=== PATIENT | male | born 2005 | race Caucasian/White ===

== ENCOUNTER 2024-07-03 19:42 | Emergency (ER) | payer SELFPAY ==
[2024-07-03 19:43] VITALS: RESP 16; O2SAT 99; BMI 28.8
--- NOTE | 2024-07-03 20:29 | ED_ITS ---
<Statement entered by Aliyah Little MD - 07/03/24 23:13> I was consulted by the MARGARITA, and we discussed the complexity of the problems being addressed. I approved the treatment and management plan for this patient's care in the emergency department, thus performing a substantive portion of the medical decision making. Aliyah Little MD, GUERDA, FACEP Discharge Plan Disposition Patient Disposition: Home, Self-Care Condition: Good Referrals Follow up/Referrals: Provider,Referral, [Primary Care Provider] - See instructions Activity Restrictions/Add. Instructions Additional Instructions/Restrictions: Please continue to take Tylenol alternating Motrin for any symptoms. I have sent in some Bromfed to your pharmacy for help with your constitutional symptoms if you need it. Clinical Impressions Clinical Impression: Acute upper respiratory infection Stand Alone Forms Stand Alone Forms: Work/School Release Instructions Patient Instructions: Common Cold Print Language Print Language: Arabic Discharge ED Provider: Aliyah Little General Adult HPI General Chief complaint: Upper Respiratory Infection Stated complaint: nilson, SOA sore throat Time Seen by Provider: 07/03/24 20:29 History of Present Illness HPI narrative: Patient presents for evaluation of cough congestion and sore throat. Patient states he has had 3 days of cough congestion and sore throat he has been trying to take Tylenol Motrin and DayQuil. Patient presents today because he needs a work excuse. He denies any chest pain nausea vomiting or diarrhea. Related Data Allergies Allergy/AdvReac Type Severity Reaction Status Date / Time No Known Allergies Allergy Verified 07/03/24 20:35 [facility] Disclaimer: The information contained in this section may have been updated after the patient was seen, as this information can be updated by other users. Social History Smoking Status: Never smoker alcohol intake: never current occupational status: employed Travel in the last 8 weeks: None ROS Obtained: Yes Systems reviewed as appropriate & no additional complaints except as documented Physical Exam General General appearance: alert and in no apparent distress Respiratory Respiratory exam: Present normal lung sounds bilaterally Cardiovascular Cardiovascular exam: Present regular rate Neurological Exam Neurological exam: Present alert and oriented X3 Medical Decision Making Medical Records Screening: Per USPSTF and CDC recommendations, given the prevalence of disease in our region, it is our hospital?s policy to screen for HIV and viral Hepatitis for all patients aged 18 and over and those with ongoing risk factors. Richy Inquiry Pt receiving controlled substance: No Vital Signs: 07/03/24 19:43 07/03/24 20:34 Temperature 97.9 F Temperature Source Oral Pulse Rate 82 Respiratory Rate 16 16 Blood Pressure 162/90 H Blood Pressure Source Manual Cuff/ Doppler Blood Pressure Position Supine 02 Sat by Pulse Oximetry 99 99 Oxygen Delivery Method Room Air Medical Decision Narrative: In summary patient is a 18-year-old male who presents to the emergency department for evaluation of URI symptoms. Patient is hemodynamically stable upon arrival, afebrile. Physical exam is remarkable for erythematous posterior pharynx without any evidence of exudate. He has no cervical lymphadenopathy. Breath sounds are clear and equal bilaterally to the bases. Patient does have nasal congestion. Differential diagnosis includes viral bacterial upper respiratory tract infection.. Initial workup was considered however patient via patient directed decision making has declined BRAND. Initial interventions were offered including Tylenol and Motrin but via patient directed decision making has declined. I had interactive discussion with the patient regarding his symptoms and treatment options. Via patient directed decision making patient feels comfortable going home without any intervention or further diagnostic studies he only came because he is required for having a note for work. Thus patient is appropriate for discharge with recommendations to return if his symptoms worsen or do not improve. Patient verbalized understanding and agreement. Critical Care Critical Care Time Critical Care Time: No
[2024-07-03 20:34] VITALS: BP 162/90; PULSE 82; RESP 16; TEMP 36.6; O2SAT 99
[2024-07-03 20:40] VITALS: BP 136/81; PULSE 89; RESP 16; TEMP 37
== END 2024-07-03 20:54 | disposition home or self-care (01) ==
PROVIDERS: Emergency Provider Student in an Organized Health Care Education/Training Program
DX: J06.9 Acute upper respiratory infection, unspecified (principal); R05.9 Cough, unspecified; R09.81 Nasal congestion; J02.9 Acute pharyngitis, unspecified
CPT/HCPCS: 99282

== ENCOUNTER 2024-10-28 17:27 | Emergency (ER) | payer MEDICAID, SELFPAY ==
[2024-10-28 17:53] VITALS: BP 143/74; PULSE 81; RESP 15; TEMP 36.8; O2SAT 100; BMI 26.2
[2024-10-28 18:06] LABS: Coronavirus 19, PCR Not Detected (NotDetected); Influenza A, PCR Not Detected (NotDetected); Influenza B, PCR Not Detected (NotDetected)
--- NOTE | 2024-10-28 19:28 | HMH.EDGENADL ---
Discharge Plan Disposition Patient Disposition: Home, Self-Care Condition: Good Prescriptions Prescriptions: New amoxicillin 500 mg capsule 500 mg PO BID 7 Days Qty: 14 0RF ondansetron 4 mg tablet,disintegrating 4 mg PO Q8H PRN (Reason: nausea and vomiting) 5 Days Qty: 10 0RF No Action zcqyxdvgzxknzog-znuqwmknl-ZK [Bromfed DM] 2-30-10 mg/5 mL syrup 5 ml PO Q4H PRN (Reason: sinus symptoms) Qty: 118 0RF Referrals Follow up/Referrals: Provider,Referral, MD [Primary Care Provider] - See instructions Activity Restrictions/Add. Instructions Additional Instructions/Restrictions: I have prescribed antibiotics and nausea medication for you to take as needed. It appeared on your ultrasound that you may have some signs of a pneumonia, based off your ultrasound and history and physical exam. Please return with any new or worsening symptoms. Clinical Impressions Clinical Impression: Acute upper respiratory infection Stand Alone Forms Stand Alone Forms: Work/School Release Print Language Print Language: Monegasque Discharge ED Provider: Matthew Berman Adult HPI General Chief complaint: Upper Respiratory Infection Stated complaint: abdominal pain,sore throat,SOA Time Seen by Provider: 10/28/24 19:28 Mode of Arrival: Ambulatory Source of Information: Patient Description of Symptoms (Recalled from ER Triage Doc. by RN): patient states on sunday he devloped a sore throat, cough, upper abdomnial pain and shortness of breath. he reports his gf had the flu last week. History of Present Illness HPI narrative: Patient presents for evaluation of sore throat, cough, shortness of breath, gradual in onset with recent sick contacts, no pleuritic pain, no hemoptysis, no leg pain or leg swelling. No overt chest pain. No known fevers however has had chills. No previous therapies. Please note that above description of symptoms, in this electronic medical record under categorization of recalled from ER triage doctor by RN are reflective of an initial nursing assessment, however, is not reflective of my full history and physical exam that was personally taken and clarified. Consequentially, this preceding description of symptoms, which may include the patient's categorized chief complaint in the EMR, do not reflect my personal clinical impression, and the ultimate description of history of present illness and patient stated complaints should be deferred to this section of the note. Unless stated otherwise or congruent with this section of the note, additional signs, symptoms, or incongruence should be interpreted as inaccurate with my clinical impression. Related Data Previous Rx's ?Medication ?Instructions ?Recorded ptzkgbvfgszpquj-hgmfgrxhjdubzpr-TJ 5 ml PO Q4H PRN sinus symptoms 07/03/24 2 mg-30 mg-10 mg/5 mL oral syrup #118 mL (Bromfed DM) amoxicillin 500 mg capsule 500 mg PO BID 7 days #14 caps 10/28/24 ondansetron 4 mg disintegrating 4 mg PO Q8H PRN nausea and 10/28/24 tablet vomiting 5 days #10 tabs Allergies Allergy/AdvReac Type Severity Reaction Status Date / Time No Known Allergies Allergy Verified 07/03/24 20:35 [facility] Disclaimer: The information contained in this section may have been updated after the patient was seen, as this information can be updated by other users. Social History (Updated 07/03/24 @ 20:42 by CHARU See) Smoking Status: Current every day smoker alcohol intake: never current occupational status: employed Travel in the last 8 weeks: None Have you lived/traveled outside [place] in past 30 days?: No Contact w/someone who lives/traveled outside [place] past 30 days?: No Exposure to someone with infectious disease in past 14 days?: No Do you have a fever (greater than 100.4 F or 38 C)?: No Have you tested positive for COVID-19: No Exposed to someone with COVID-19 in past 14 days?: No Do you have a sore throat?: No Do you have a cough?: No Do you have any weakness?: No Do you have any diarrhea?: No Are you experiencing any unusual bleeding?: No Do you have any muscle aches/pain?: No Do you have any abdominal pain?: No Are you experiencing loss of taste or smell?: No ROS Obtained: Yes other As per HPI Physical Exam General General appearance: alert and in no apparent distress Head Head exam: atraumatic and normocephalic Eye Eye exam: Present normal appearance Neck Neck exam: Present normal inspection Chest Chest inspection: Present normal inspection and symmetric chest wall rise Respiratory Respiratory exam: Present normal lung sounds bilaterally; Absent respiratory distress Cardiovascular Cardiovascular exam: Present regular rate and normal rhythm Abdominal Exam Abdominal exam: Present soft Neurological Exam Neurological exam: Present alert and oriented X3 Psychiatric Psychiatric exam: Present normal affect and normal mood Skin Skin exam: Present warm and dry Medical Decision Making Medical Records Medical records reviewed: Yes I reviewed the patient's medical records. Screening: Per USPSTF and CDC recommendations, given the prevalence of disease in our region, it is our hospital?s policy to screen for HIV and viral Hepatitis for all patients aged 18 and over and those with ongoing risk factors. Richy Inquiry Pt receiving controlled substance: No Vital Signs: 10/28/24 17:53 10/28/24 20:00 Temperature 98.2 F 98.1 F Temperature Source Oral Pulse Rate 87 Pulse Rate [Right] 81 Respiratory Rate 15 20 Blood Pressure 132/87 Blood Pressure [Right Arm] 143/74 H Blood Pressure Mean [Right Arm] 97 Blood Pressure Source [Right Arm] Automatic Cuff Blood Pressure Position [Right Arm] Sitting 02 Sat by Pulse Oximetry 100 Oxygen Delivery Method Room Air Room Air Lab Data Lab Results 10/28/24 17:52: SARS-CoV-2 (PCR) Not detected, Influenza A Untype (PCR) Not detected, Influenza Type B (PCR) Not detected Orders (Tests/Meds): ORDERS Category Date Time Status Rapid PCR Covid and Flu A/B Stat Lab 10/28/24 17:52 Completed Medical Decision Narrative: Patient with history and exam per above presenting for evaluation of multiple complaints Diagnoses considered include upper respiratory infection, community-acquired pneumonia, among others ED workup and treatment included: COVID and flu testing Labs were independently interpreted by me, significant for no acute findings My clinical impression at this time is most consistent with community-acquired pneumonia I discussed my clinical impression with patient and answered all questions. At this time, the evidence for any other entities in the differential is insufficient to warrant any further testing or ED observation. This was explained to the patient. The patient was advised that persistent or worsening symptoms require further evaluation. Critical Care Critical Care Time Critical Care Time: No
[2024-10-28 20:00] VITALS: BP 132/87; PULSE 87; RESP 20; TEMP 36.7; O2SAT 97
== END 2024-10-28 20:12 | disposition home or self-care (01) ==
PROVIDERS: Emergency Provider Emergency Medicine
DX: J06.9 Acute upper respiratory infection, unspecified (principal)
CPT/HCPCS: 87636; 99283

== ENCOUNTER 2025-04-09 22:57 | Emergency (ER) | payer SELFPAY ==
[2025-04-09 22:58] VITALS: BP 129/91; PULSE 83; RESP 16; TEMP 36.8; O2SAT 99; BMI 28.1
[2025-04-09] MEDS: ONDANSETRON 4MG ODT 8 MG SL (23:08)
--- NOTE | 2025-04-09 23:09 | ED_ITS ---
Discharge Plan Disposition Patient Disposition: Home, Self-Care Condition: Good Prescriptions Prescriptions: New ondansetron 4 mg tablet,disintegrating 4 mg PO Q6H PRN (Reason: nausea and vomiting) Qty: 12 0RF dicyclomine 10 mg capsule 10 mg PO DAILY PRN (Reason: Abdominal cramping) Qty: 3 0RF No Action rmzjfrjuslkwomt-dhhzrgcje-XA [Bromfed DM] 2-30-10 mg/5 mL syrup 5 ml PO Q4H PRN (Reason: sinus symptoms) Qty: 118 0RF amoxicillin 500 mg capsule 500 mg PO BID 7 Days Qty: 14 0RF ondansetron 4 mg tablet,disintegrating 4 mg PO Q8H PRN (Reason: nausea and vomiting) 5 Days Qty: 10 0RF Activity Restrictions/Add. Instructions Additional Instructions/Restrictions: You were evaluated in the ER and are believed to be appropriate for discharge at this time. Take the prescribed Zofran (ondansetron) as needed for nausea and vomiting. Drink plenty of water, Gatorade, Pedialyte to stay hydrated. Only take the prescribed Bentyl (dicyclomine) if needed for severe abdominal cramping. Do not take any antidiarrheal medications. Start eating a bland diet such as plain toast, rice, bananas, and if you are tolerating these slowly progress your diet back to normal. Follow-up with your primary care doctor for reevaluation in a few days. Return to the ER with any new, worsening, or otherwise concerning symptoms as discussed. Clinical Impressions Clinical Impression: Nausea, vomiting, and diarrhea Stand Alone Forms Stand Alone Forms: Work/School Release Print Language Print Language: Tamazight Discharge ED Provider: Alhaji Brumfield General Adult HPI General Stated complaint: V/D Time Seen by Provider: 04/09/25 22:59 History of Present Illness HPI narrative: Otherwise healthy 19-year-old male presents to the ER with complaints of nausea, vomiting, diarrhea. Symptoms started approximately 15 hours prior to arrival. Patient had nonbloody, nonbilious emesis, nonbloody, nonmelanotic stool. He reports he has only been able to keep down minimal amounts today and prior to arrival tried to eat chicken noodle soup which he promptly vomited back up. He has no abdominal pain, no fevers, no bodyaches, no chills, no chest pain, no difficulty breathing, no dysuria, no hematuria. Patient reports taking naproxen prior to arrival. Patient reports he is only in the ER because his work sent him to get a doctor note. He has no other complaints or concerns at this time. Related Data Previous Rx's ?Medication ?Instructions ?Recorded wafzuitqpbusqli-lldegasawngbtzr-N[place] 5 ml PO Q4H PRN sin us symptoms 07/03/24 2 mg-30 mg-10 mg/5 mL oral syrup #118 mL (Bromfed DM) amoxicillin 500 mg capsule 500 mg PO BID 7 days #14 ca ps 10/28/24 ondansetron 4 mg disintegrating 4 mg PO Q8H PRN nausea and 10/28/24 tablet vomiting 5 days #10 tabs dicyclomine 10 mg capsule 10 mg PO DAILY PRN Abdominal 04/09/25 cramping #3 caps ondansetron 4 mg disintegrating 4 mg PO Q6H PRN nausea and 04/09/25 tablet vomiting #12 tabs Allergies Allergy/AdvReac Type Severity Reaction Status Date / Time No Known Allergies Allergy Verified 07/03/24 20:35 [facility] Disclaimer: The information contained in this section may have been updated after the patient was seen, as this information can be updated by other users. Social History (Updated 07/03/24 @ 20:42 by CHARU See) Smoking Status: Current every day smoker alcohol intake: never current occupational status: employed Travel in the last 8 weeks?: None ROS Obtained: Yes Systems reviewed as appropriate & no additional complaints except as documented Per HPI Physical Exam General General appearance: alert and in no apparent distress Head Head exam: atraumatic and normocephalic Eye Eye exam: Present PERRL and EOMI ENT ENT exam: Present mucous membranes moist Neck Neck exam: Present normal inspection and full ROM Chest Chest inspection: Present symmetric chest wall rise Respiratory Respiratory exam: Present normal lung sounds bilaterally; Absent respiratory distress, wheezes or stridor Cardiovascular Cardiovascular exam: Present regular rate and normal rhythm Abdominal Exam Abdominal exam: Present soft; Absent distention, tenderness, guarding or rebound Comment: Benign abdomen Extremities Exam Extremities exam: Present full ROM; Absent edema Neurological Exam Neurological exam: Present alert and oriented X3; Absent motor sensory deficit Psychiatric Psychiatric exam: Present normal affect and normal mood Skin Skin exam: Present warm and dry Medical Decision Making Medical Records Medical records reviewed: Yes I reviewed the patient's medical records. Screening: Per USPSTF and CDC recommendations, given the prevalence of disease in our region, it is our hospital?s policy to screen for HIV and viral Hepatitis for all patients aged 18 and over and those with ongoing risk factors. Richy Inquiry Pt receiving controlled substance: No Orders (Tests/Meds): ED MEDICATIONS Discontinued Medications Generic Name Dose Route Start Last Admin Trade Name Lorena PRN Reason Stop Dose Admin Ondansetron HCl 8 mg 04/09/25 23:03 04/09/25 23:08 Ondansetron 4mg Odt SL 04/09/25 23:04 8 mg ONCE ONE Administration Medical Decision Narrative: In summary, this 19-year-old male presents to the emergency department today with nausea, vomiting, diarrhea. On initial evaluation patient is hemodynamically stable, afebrile, overall well-appearing, well-hydrated, cardiopulmonary exam benign, benign abdominal exam. Patient has no focal complaints and states he just needs a doctor's note. He has no red flag symptoms of abdominal pain, no systemic symptoms of illness aside from the symptoms he reported. Differential diagnosis includes but is not limited to viral syndrome, I also considered the possibility of food poisoning, pathogenic diarrhea, but I have very low suspicion for these given the numerous recent illnesses like this throughout the community and his well-appearing presentation and symptomatic history. Patient is otherwise healthy with a benign exam and I do not believe he requires any labs or imaging at this time. He is comfortable with this. Patient received Zofran in the ER for symptomatic management. He was provided a work note as requested. I prescribed Zofran for nausea and vomiting, I also prescribed Bentyl if needed for abdominal cramping but gave him very cautious instructions on use of this medication only if needed for significant cramping symptoms. Patient was given instructions on symptomatic management, follow up instructions, and return precautions for the emergency department. Patient indicated understanding and was discharged in stable condition. Critical Care Critical Care Time Critical Care Time: No
[2025-04-09 23:14] VITALS: BP 129/91; PULSE 83; RESP 16; TEMP 36.8; O2SAT 99
--- OUTSIDE RECORDS SUMMARY | 2025-04-09 23:15 | XMS_ITS | Clinical Summary ---
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 Active cetirizine (ZYRTEC) 5 mg tablet Take 10 mg by mouth daily. Active prednisoLONE (PRELONE) 15 mg/5 mL syrup Take 2 tsp daily for the first 4 days. Take 1.5 tsp daily for the next 4 days. Take 1 tsp daily for the last 4 days. 90 mL 0 06/18/2013 Active Active Problems No known active problems Surgical History Surgery Date Site/Laterality Comments TYMPANOSTOMY TUBE PLACEMENT Medical History Medical History Date Comments ADHD (attention deficit hyperactivity disorder) Social History Tobacco Use Types Packs/Day Years Used Date Smoking Tobacco: Never Smokeless Tobacco: Never Alcohol Use Standard Drinks/Week Comments No 0 (1 standard drink = 0.6 oz pur e alcohol) Sex and Gender Information Value Date Recorded Sex Assigned at Not on file Legal Sex Male 6:32 AM EDT Gender Identity Not on file Sexual Orientation Not on file Obstetrics History Last Filed Vital Signs Vital Sign Reading Time Taken Comments Blood Pressure 159/86 09/17/2024 5:56 PM EST Pulse 78 09/17/2024 5:55 PM EST Temperature 37 C (98.6 F) 09/17/2024 5:56 PM EST Respiratory Rate 18 09/17/2024 5:55 PM EST Oxygen Saturation 98% 09/17/2024 5:55 PM EST Inhaled Oxygen Concentration - - Weight 95.4 kg (210 lb 4.8 oz) 09/17/2024 5:56 P M EST Height 188 cm (6' 2 ) 09/17/2024 5:56 PM EST Body Mass Index 27 09/17/2024 5:56 PM EST Plan of Treatment Health Maintenance Due Date Last Done Comments Annual Wellness Exam 10/11/2006 Meningococcal B Vaccine (1 of 2 - Standard) 2019 DTaP/TDaP/Td (7 - Td or Tdap) 11/03/2024 11/03/2014, 12/11/2007, 03/03/2005, Additional history exists COVID-19 Vaccine ( season) 2025 Influenza Vaccine (#1) 2025 5, 05/12/2014, 04/22/2013, Additional history exists Pneumococcal Vaccine 0-49 Aged Out 2003 No longer eligible based on patient's age to complete this topic Hepatitis B Vaccine Completed 10/27/2004, 2003, 2003 HPV Completed 11/17/2015, 06/30, 05/12/2014 Insurance [employer] Care Teams Winch Derrick Operator Relationship Specialty Start Date End Date Ashley Maria [address] [place] [id number] PCP - General 12/12/09
--- OUTSIDE RECORDS SUMMARY | 2025-04-09 23:15 | XMS_ITS | Clinical Summary ---
Author Organization [facility] Address [address] [place] [phone] Phone Care Team Providers Care Building Repair Maintenance Supervisor Name Role Phone Benja Walker MD Primary Care Physician [phone] [ ] Conditions or Problems Problem Name Problem Code Onset Date Status Entry Date Provider Comment Standard Description Annotate Counseling for nutrition Z71.3 (ICD-10-CM ) 10/29 Inactive 10/29 Benja Walker MD Dietary counseling and surveillance Body mass index (BMI) pediatric; 5th percentile to less than 85th percentile for age Z68.52 (ICD-10-CM ) 10/29 Active 10/29 Benja Walker MD Body mass index [BMI] pediatric, 5th percentile to less than 85th percentile for age Well Child NO ABN [id number] (SNOMED CT) 10/29 Inactive 10/29 Benja Walker MD Procedure carried out on subject Body mass index (BMI) pediatric; 85th percentile to less than 95th percentile for age Z68.53 (ICD-10-CM ) 03/12 Correction 03/12 Benja Walker MD Body mass index [BMI] pediatric, 85th percentile to less than 95th percentile for age Body mass index (BMI) pediatric; 85th percentile to less than 95th percentile for age Z68.53 (ICD-10-CM ) 03/12 Removed 03/12 Jailyn Wilson MA Body mass index [BMI] pediatric, 85th percentile to less than 95th percentile for age Body mass index (BMI) pediatric; 85th percentile to less than 95th percentile for age Z68.53 (ICD-10-CM ) 08/27 Correction 08/27 Jailyn Wilson MA Body mass index [BMI] pediatric, 85th percentile to less than 95th percentile for age Well Child ABN Findings [id number] (SNOMED CT) 03/12 Inactive 03/12 Jailyn Wilson MA Procedure carried out on subject Body mass index (BMI) pediatric; 85th percentile to less than 95th percentile for age Z68.53 (ICD-10-CM ) 08/27 Removed 08/27 Benja Walker MD Body mass index [BMI] pediatric, 85th percentile to less than 95th percentile for age Body mass index (BMI) pediatric; 85th percentile to less than 95th percentile for age Z68.53 (ICD-10-CM ) 04/08 Correction 04/08 Benja Walker MD Body mass index [BMI] pediatric, 85th percentile to less than 95th percentile for age ACNE [id number] (SNOMED CT) 08/27 Active 08/27 Benja Walker MD Acne Body mass index (BMI) pediatric; 85th percentile to less than 95th percentile for age Z68.53 (ICD-10-CM ) 04/08 Removed 04/08 Benja Walker MD Body mass index [BMI] pediatric, 85th percentile to less than 95th percentile for age Body mass index (BMI) pediatric; 85th percentile to less than 95th percentile for age Z68.53 (ICD-10-CM ) 02/24 Correction 02/25 Benja Walker MD Body mass index [BMI] pediatric, 85th percentile to less than 95th percentile for age URINARY FREQUENCY [id number] (SNOMED CT) 04/08 Inactive 04/08 Benja Walker MD Increased frequency of urination Counseling for nutrition Z71.3 (ICD-10-CM ) 02/24 Inactive 02/25 Benja Walker MD Dietary counseling and surveillance Body mass index (BMI) pediatric; 85th percentile to less than 95th percentile for age Z68.53 (ICD-10-CM ) 02/24 Removed 02/25 Benja Walker MD Body mass index [BMI] pediatric, 85th percentile to less than 95th percentile for age Body mass index (BMI) pediatric; 85th percentile to less than 95th percentile for age Z68.53 (ICD-10-CM ) 09/16 Correction 09/16 Benja Walker MD Body mass index [BMI] pediatric, 85th percentile to less than 95th percentile for age Well Child ABN Findings Z00.121 (ICD-10-CM ) 02/24 Inactive 02/25 Benja Walker MD Encounter for routine child health examination with abnormal findings Body mass index (BMI) pediatric; 85th percentile to less than 95th percentile for age Z68.53 (ICD-10-CM ) 09/16 Removed 09/16 Benja Walker MD Body mass index [BMI] pediatric, 85th percentile to less than 95th percentile for age Body mass index (BMI) pediatric; 5th percentile to less than 85th percentile for age Z68.52 (ICD-10-CM ) 03/18 Correction 03/19 Benja Walker MD Body mass index [BMI] pediatric, 5th percentile to less than 85th percentile for age Counseling for nutrition Z71.3 (ICD-10-CM ) 03/18 Inactive 03/19 Benja Walker MD Dietary counseling and surveillance Body mass index (BMI) pediatric; 5th percentile to less than 85th percentile for age Z68.52 (ICD-10-CM ) 03/18 Removed 03/19 Benja Walker MD Body mass index [BMI] pediatric, 5th percentile to less than 85th percentile for age Body mass index (BMI) pediatric; 5th percentile to less than 85th percentile for age Z68.52 (ICD-10-CM ) 08/14 Correction 08/14 Benja Walker MD Body mass index [BMI] pediatric, 5th percentile to less than 85th percentile for age Well Child ABN Findings Z00.121 (ICD-10-CM ) 03/18 Inactive 03/19 Benja Walker MD Encounter for routine child health examination with abnormal findings Body mass index (BMI) pediatric; 5th percentile to less than 85th percentile for age Z68.52 (ICD-10-CM ) 08/14 Removed 08/14 Benja Walker MD Body mass index [BMI] pediatric, 5th percentile to less than 85th percentile for age Body mass index (BMI) pediatric; 5th percentile to less than 85th percentile for age Z68.52 (ICD-10-CM ) 04/10 Correction 04/10 Benja Walker MD Body mass index [BMI] pediatric, 5th percentile to less than 85th percentile for age Body mass index (BMI) pediatric; 5th percentile to less than 85th percentile for age Z68.52 (ICD-10-CM ) 04/10 Removed 04/10 Benja Walker MD Body mass index [BMI] pediatric, 5th percentile to less than 85th percentile for age Body mass index (BMI) pediatric; 5th percentile to less than 85th percentile for age Z68.52 (ICD-10-CM ) 12/11 Correction 12/11 Benja Walker MD Body mass index [BMI] pediatric, 5th percentile to less than 85th percentile for age Body mass index (BMI) pediatric; 5th percentile to less than 85th percentile for age Z68.52 (ICD-10-CM ) 12/11 Removed 12/11 Benja Walker MD Body mass index [BMI] pediatric, 5th percentile to less than 85th percentile for age Body mass index (BMI) pediatric; 5th percentile to less than 85th percentile for age Z68.52 (ICD-10-CM ) 11/23 Correction 11/23 Benja Walker MD Body mass index [BMI] pediatric, 5th percentile to less than 85th percentile for age Animal bite [id number] (SNOMED CT) 11/23 Resolved 11/23 Benja Walker MD Animal bite wound dog on left wrist Body mass index (BMI) pediatric; 5th percentile to less than 85th percentile for age Z68.52 (ICD-10-CM ) 11/23 Removed 11/23 Benja Walker MD Body mass index [BMI] pediatric, 5th percentile to less than 85th percentile for age Animal bite 588234839 (SNOMED CT) 11/23 Removed 11/23 Benja Walker MD Animal bite wound dog on left wrist SLEEP DISORDER [id number] (SNOMED CT) 08/15 Resolved 08/15 Benja Walker MD Sleep disorder School physical 61352091 (SNOMED CT) 11/12 Resolved 11/12 Benja Walker MD History and physical examination, school School physical 56308544 (SNOMED CT) 11/12 Removed 11/12 Meera Diallo APRN History and physical examination, school FAMILY STRESS 391370137 (SNOMED CT) 03/11 Inactive 03/11 Benja Walker MD Family tension of the mom SPORT - DOT PHYS Z02.89 (ICD-10-CM ) 01/01 Resolved 01/01 Benja Walker MD Encounter for other administrative examinations SPORT - DOT PHYS Z02.89 (ICD-10-CM ) 01/01 Removed 01/01 Meera Diallo MULUGETA Encounter for other administrative examinations URI ACUTE 59849039 (SNOMED CT) 08/19 Inactive 08/19 Benja Walker MD Acute upper respiratory infection BRONCHITIS ACUTE 05909076 (SNOMED CT) 09/10 Resolved 09/10 Benja Walker MD Acute bronchitis BRONCHITIS ACUTE 15624335 (SNOMED CT) 09/10 Removed 09/10 Benja Walker MD Acute bronchitis UPPER RESPIRATORY INFECTION, VIRAL 883066284 (SNOMED CT) 10/24 Resolved 10/24 Benja Walker MD Viral upper respiratory tract infection UPPER RESPIRATORY INFECTION, VIRAL 308035122 (SNOMED CT) 10/24 Removed 10/24 Harshil Ward MD Viral upper respiratory tract infection BRONCHITIS ACUTE 47238105 (SNOMED CT) 08/24 Inactive 08/24 Benja Walker MD Acute bronchitis CROUP 42282152 (SNOMED CT) Inactive Benja Walker MD Croup ALLERGIC RHINITIS 74103579 (SNOMED CT) 11/23 Active 11/27 Tatyana Amaro MD Allergic rhinitis UPPER RESPIRATORY INFECTION, VIRAL 521371081 (SNOMED CT) 10/24 Resolved 10/24 Tatyana Amaro MD Viral upper respiratory tract infection UPPER RESPIRATORY INFECTION, VIRAL 484287299 (SNOMED CT) 10/24 Removed 10/24 Margret Santana Viral upper respiratory tract infection URI ACUTE 86411743 (SNOMED CT) 08/29 Inactive 08/29 Benja Walker MD Acute upper respiratory infection DERMATITIS CONTACT L25.9 (ICD-10-CM ) 11/07 Resolved 11/07 Benja Walker MD Unspecified contact dermatitis, unspecified cause BRONCHITIS ACUTE 04575624 (SNOMED CT) 07/31 Resolved 07/31 Benja Walker MD Acute bronchitis INSOMNIA 516056719 (SNOMED CT) Resolved 02/25 Benja Walker MD Insomnia ADHD 051940377 (SNOMED CT) 09/2009 Resolved 02/25 Benja Walker MD Attention deficit hyperactivity disorder SINUSITIS ACUTE 31040197 (SNOMED CT) 09/06 Resolved 09/06 Benja Walker MD Acute sinusitis SINUSITIS ACUTE 55400252 (SNOMED CT) 08/27 Resolved 08/27 Benja Walker MD Acute sinusitis History of OPPOSITIONAL DEFIANT DISORDER 45941277 (SNOMED CT) 09/2009 Correction 02/25 Benja Walker MD Oppositional defiant disorder BEHAV- DELIQUENCY F91.9 (ICD-10-CM ) Resolved 02/25 Benja Walker MD Conduct disorder, unspecified BRONCHITIS ACUTE 20708636 (SNOMED CT) 07/31 Removed 07/31 Benja Walker MD Acute bronchitis DERMATITIS CONTACT L25.9 (ICD-10-CM ) 11/07 Removed 11/07 Herlinda Jose SLUDGE CONTROL OPERATOR Unspecified contact dermatitis, unspecified cause SLEEP DISORDER 59825425 (SNOMED CT) 08/15 Removed 08/15 Benja Walker MD Sleep disorder ADHD 302771230 (SNOMED CT) 08/15 Active 08/15 Benja Walker MD Attention deficit hyperactivity disorder ASTHMA 247534380 (SNOMED CT) 09/06 Active 09/06 Benja Walker MD Asthma SINUSITIS ACUTE 97571611 (SNOMED CT) 09/06 Removed 09/06 Benja Walker MD Acute sinusitis SINUSITIS ACUTE 82403634 (SNOMED CT) 08/27 Removed 08/27 Benja Walker MD Acute sinusitis INSOMNIA 705709937 (SNOMED CT) Removed 02/25 Krystle Hurry Insomnia BEHAV- DELIQUENCY F91.9 (ICD-10-CM ) Removed 02/25 Krystle Hurry Conduct disorder, unspecified ADHD 197565614 (SNOMED CT) 09/2009 Removed 02/25 Krystle Hurry Attention deficit hyperactivity disorder History of OPPOSITIONAL DEFIANT DISORDER 98023990 (SNOMED CT) 09/2009 Removed 02/25 Krystle Hurry Oppositional defiant disorder Medications Medication Instructions Start Date Stop Date Generic Name NDC Provider AMPHETAMINE-DEXT ROAMPHET ER 10 MG [id number] 1 cap in am 10/29 AMPHETAMINE-DEXTR OAMPHETAMINE 27052873517 Benja Walker MD AMPHETAMINE-DEXT ROAMPHETAMINE 5 MG TABS 1 tab post school 10/29 AMPHETAMINE-DEXTR OAMPHETAMINE 24471640029 Benja Walker MD MALATHION 0.5 % LOTN apply to hair/ let dry/ rinse out 10/29 MALATHION 61696279152 Benja Walker MD MALATHION 0.5 % LOTN apply to hair/ let dry/ rinse out MALATHION 54457377960 Benja Walker MD CLINDAMYCIN PHOSPHATE 1 % EXTERNAL GEL use twice daily on acne as needed CLINDAMYCIN PHOSPHATE 12326665468 Benja Walker MD AMPHETAMINE-DEXT ROAMPHET ER 10 MG [id number] 1 cap in am AMPHETAMINE-DEXTR OAMPHETAMINE 05254598009 Benja Walker MD AMPHETAMINE-DEXT ROAMPHET ER 10 MG [id number] 1 cap in am AMPHETAMINE-DEXTR OAMPHETAMINE 03076879911 Benja Walker MD AMPHETAMINE-DEXT ROAMPHET ER 10 MG [id number] 1 cap in am AMPHETAMINE-DEXTR OAMPHETAMINE 88809089050 Benja Walker MD VENTOLIN HFA 108 (90 Base) MCG/ACT AERS use 2 puffs every 4-6 hrs as needed for wheezing ALBUTEROL SULFATE 98019541193 Benja Walker MD AMPHETAMINE-DEXT ROAMPHETAMINE 5 MG TABS 1 tab post school AMPHETAMINE-DEXTR OAMPHETAMINE 90165517367 Benja Walker MD AMPHETAMINE-DEXT ROAMPHET ER 10 MG [id number] 1 in am AMPHETAMINE-DEXTR OAMPHETAMINE 10464787902 Benja Walker MD AMPHETAMINE-DEXT ROAMPHETAMINE 5 MG TABS 1 post school AMPHETAMINE-DEXTR OAMPHETAMINE 35558240957 Benja Walker MD ADDERALL XR 10 MG [id number] 1 in am AMPHETAMINE-DEXTR OAMPHETAMINE 65305629867 Benja Walker MD ADDERALL 5 MG TABS 1 post school AMPHETAMINE-DEXTR OAMPHETAMINE 89693978562 Benja Walker MD PREDNISONE 20 MG TABS use 3 tabs once daily for 5 days 03/23 PREDNISONE 48428353687 Benja Walker MD LORATADINE 10 MG TABS 1 daily LORATADINE 23459440430 Benja Walker MD PREDNISONE 20 MG TABS use 3 tabs once daily for 5 days PREDNISONE 35935975655 Benja Walker MD PROMETHAZINE-DM 6.25-15 MG/5ML SYRP use 5 ml every 4-6 hrs as needed for cough/congesti on PROMETHAZINE-DM 13486947318 Benja Walker MD ADDERALL XR 10 MG [id number] 1 in am Dx:314.01 AMPHETAMINE-DEXTR OAMPHETAMINE 87859912585 Benja Walker MD VENTOLIN HFA 108 (90 Base) MCG/ACT AERS use 2 puffs every 4-6 hrs as needed for wheezing ALBUTEROL SULFATE 01147872547 Benja Walker MD PROMETHAZINE-DM 6.25-15 MG/5ML SYRP use 2.5 ml every 4-6 hrs as needed for cough/congesti on 01/01 PROMETHAZINE-DM 91925856705 Meera Diallo APRN PROMETHAZINE-DM 6.25-15 MG/5ML SYRP use 2.5 ml every 4-6 hrs as needed for cough/congesti on PROMETHAZINE-DM 36811282336 Benaj Walker MD BROMFED DM 30-2-10 MG/5ML ORAL SYRUP 1 TSP BY MOUTH 4 TIMES A DAY NEEDED FOR COUGH 04/22 PSEUDOEPH-BROMPHE N-DM 04686179176 Benja Walker MD AZITHROMYCIN 250 MG TABS 2 for 1st dose then 1 once daily for 4 days more 11/27 AZITHROMYCIN 29146972415 Benja Walker MD AZITHROMYCIN 250 MG TABS 2 for 1st dose then 1 once daily for 4 days more AZITHROMYCIN 58351699098 Benja Walker MD BROMFED DM 30-2-10 MG/5ML ORAL SYRUP 1 TSP BY MOUTH 4 TIMES A DAY NEEDED FOR COUGH PSEUDOEPH-BROMPHE N-DM 81486114925 Benja Walker MD ZYRTEC ALLERGY 10 MG TABS 1 daily as needed 09/08 CETIRIZINE HCL 16944370960 Harshil Ward MD PROMETHAZINE-DM 6.25-15 MG/5ML SYRP use 2.5 ml every 4-6 hrs as needed for cough/congesti on 09/08 PROMETHAZINE-DM 48575313700 Harshil Ward MD AZITHROMYCIN 200 MG/5ML SUSR use 5 ml for 1st dose then 2.5 ml once daily for 4 days more 09/08 AZITHROMYCIN 85001579631 Harshil Ward MD AZITHROMYCIN 200 MG/5ML SUSR use 5 ml for 1st dose then 2.5 ml once daily for 4 days more AZITHROMYCIN 52540163587 Benja Walker MD PREDNISONE 20 MG TABS 2 tablets once daily for 5 days 08/24 PREDNISONE 54097239111 Benja Walker MD PROMETHAZINE-DM 6.25-15 MG/5ML SYRP use 2.5 ml every 4-6 hrs as needed for cough/congesti on PROMETHAZINE-DM 46048339875 Benja Walker MD PREDNISONE 20 MG TABS 2 tablets once daily for 5 days PREDNISONE 05145309978 Benja aWlker MD ZYRTE CHILDRENS ALLERGY TABLET CHEWABLE 03/05 CETIRIZINE HCL CHEW 42029469877 Benja Walker MD ADDERALL XR 15 MG [id number] 1 in am Dx:314.01 AMPHETAMINE-DEXTR OAMPHETAMINE 79324130572 Benja Walker MD PROAIR HFA 108 (90 Base) MCG/ACT INHALATION AEROSOL SOLUTION inhale 2 puffs q 4-6 hrs as needed for wheezing ALBUTEROL SULFATE 81129483186 Benja Walker MD ADDERALL 5 MG TABS 1 post school Dx:314.01 AMPHETAMINE-DEXTR OAMPHETAMINE 09457016284 Benja VillalpandoYRTEC ALLERGY 10 MG TABS 1 daily as needed CETIRIZINE HCL 58049057884 Benja Walker MD CETIRIZINE HCL CHILDRENS ALRGY 5 MG/5ML SYRP ONE TEASPOONFUL DAILY CETIRIZINE HCL 19965835926 Tatyana Amaro MD AZITHROMYCIN 200 MG/5ML SUSR 1 tsp 1st dose then 1/2 tsp q d for 4 d more 08/21 AZITHROMYCIN 88904967310 Benja Walker MD BROMFED DM 30-2-10 MG/5ML ORAL SYRUP 1/2 tsp q 4-6 hrs prn cough and congestion 08/21 PSEUDOEPH-BROMPHE N-DM 85418707406 Benja Walker MD ORAPRED 15 MG/5ML ORAL SOLUTION 2 tsp q d for 5 d 08/21 PREDNISOLONE SODIUM PHOSPHATE 08853900732 Benja Walker MD ADDERALL XR 10 MG [id number] 1 CAP PO QD 08/21 AMPHETAMINE-DEXTR OAMPHETAMINE 01220344691 Benja Walker MD CLONIDINE HCL 0.1 MG TABS 1 1/2 QHS 08/21 CLONIDINE HCL 32746311805 Benja Walker MD AZITHROMYCIN 200 MG/5ML SUSR 1 tsp 1st dose then 1/2 tsp q d for 4 d more AZITHROMYCIN 30275479497 Benja BONILLA DM 30-2-10 MG/5ML ORAL SYRUP 1/2 tsp q 4-6 hrs prn cough and congestion PSEUDOEPH-BROMPHE N-DM 13964346486 Benja Walker MD ORAPRED 15 MG/5ML ORAL SOLUTION 2 tsp q d for 5 d PREDNISOLONE SODIUM PHOSPHATE 32799804943 Benja Walker MD ADDERALL 5 MG TABS 1 post school Dx:314.01 AMPHETAMINE-DEXTR OAMPHETAMINE 12900614350 Benja Walker MD ALBUTEROL SULFATE (2.5 MG/3ML) 0.083% NEBU use 1 vial per tx/do 1 tx q 4-6 hrs prn wheezing ALBUTEROL SULFATE 71821817611 Benja Walker MD AEROCHAMBER MV use as directed with inhaler Dx:493.9 SPACER/AERO-HOLDI NG CHAMBERS 50025135113 Benja Walker MD ADDERALL XR 15 MG [id number] 1 q d Dx:314.01 AMPHETAMINE-DEXTR OAMPHETAMINE 88116315179 Benja Walker MD ORAPRED 15 MG/5ML ORAL SOLUTION 2 tsp q day 11/14 PREDNISOLONE SODIUM PHOSPHATE 81371481335 Herlinda Jose SLUDGE CONTROL OPERATOR ADDERALL XR 15 MG [id number] 1 q d Dx:314.01 11/19 AMPHETAMINE-DEXTR OAMPHETAMINE 03895329997 Benja Walker MD DIPHENHIST 25 MG CAPS 1-2 qhs Dx: 314.01 09/14 DIPHENHYDRAMINE HCL 99358468271 Benja Walker MD ADDERALL XR 15 MG [id number] 1 capsule qd Dx: 314.01 09/14 AMPHETAMINE-DEXTR OAMPHETAMINE 22561773751 Benja Walker MD PROAIR HFA 108 (90 Base) MCG/ACT INHALATION AEROSOL SOLUTION inhale 2 puffs q 4hrs prn for wheezing ALBUTEROL SULFATE 19240859964 Benja Walker MD ADDERALL XR 15 MG [id number] 1 capsule qd Dx: 314.01 AMPHETAMINE-DEXTR OAMPHETAMINE 82795678898 Matthew Crawford PRELONE 15 MG/5ML SYRP 2 tsp q d for 5 d 09/11 PREDNISOLONE 89287131041 Benja Walker MD AUGMENTIN 250-62.5 MG/5ML ORAL SUSPENSION RECONSTITUTED 1 tsp bid 09/16 AMOXICILLIN-POT CLAVULANATE 27287487410 Benja Walker MD RAMY 4-12.5 MG/5ML SYRP 1/2 tsp q 4-6 hrs prn cough and congestion 09/04 CHLORPHENIRAMINE- PHENYLEPHRINE 59480464378 Benja Walker MD AMOXICILLIN 250 MG/5ML SUSR 2 tsp bid 09/07 AMOXICILLIN 14220796269 Benja Walker MD ADDERALL XR 10 MG [id number] 1 CAP PO QD AMPHETAMINE-DEXTR OAMPHETAMINE 75079632563 Matthew Crawford [facility] CHILDRENS ALLERGY TABLET CHEWABLE CETIRIZINE HCL CHEW 12697260842 Krystle Torres CLONIDINE HCL 0.1 MG TABS 1 1/2 QHS CLONIDINE HCL 85951425185 Krystle Torres Medications Administered No information available. Allergies, Adverse Reactions, Alerts Observed no known allergies at Results Date Name Value Unit Range Flag Description Lab Report: Hemogram, Iron MPV 7.4 fL 7.0-12.0 Platelet jennyfer n volume [Entitic volume] in Blood by Alejandro PLATELETS 353 X10(3)/MCL 10*3/mm3 150-400 Jhony telets [#/volume] in Blood by Automated count RDW 13.4 % 11.5-14.5 Erythrocyte distribution width [Ratio] by Automated count OL-MCHC 33.8 g/dL 33.0-36.0 mean corpus cular hemoglobin concentration, rbc MCV 83.1 fL 77.0-93.0 MCV [Entiti c volume] by Automated count HCT 36.7 % 36.0-42.0 Hematocrit [Volume Fraction] of Blood by Automated count HGB 12.4 g/dL 10.5-14.5 Hemoglobin [Mass/volume] in Blood RBC 4.42 X10(6)/MCL 10*6/mm3 4.20-5.20 Erythrocytes [#/volume] in Blood by Automated count WBC COUNT 8.6 X10(3)/MCL 10*3/uL 4.5-13.0 radha kocyte count, blood Office Visit: UF SPEC GR URIN 1.020 Specific gravity of Urine by Test strip PH URINE 6.0 pH of Urine by Test strip APPEARANCE U clear Appearan ce of Urine UA COLOR lt. yellow Color of Urine GLUCOSE, URN negative Glucose [Mass/volume] in Urine by Test strip BILIRUBIN UR negative Bilirub in.total [Presence] in Urine by Test strip KETONES URN negative Ketones [Mass/volume] in Urine by Test strip BLOOD UR DIP negative blood i n urine (hemoglobin) by dipstick PROTEIN, URN negative protein , urine, semiquantitative (dipstick) UROBILINOGEN 0.2 Urobilin ogen [Presence] in Urine by Test strip NITRITE URN negative Nitrite [Presence] in Urine by Test strip WBC DIPSTK U negative Leukocy te esterase [Presence] in Urine by Test strip Plan of Care Type Date Detail Pending order T1 Drug Screen S TANDARD-Urine w/o Confirmation Pending Order exclud ed from report: Pending order T2 G.C. Chlamydi a Throat Culture Pending Order exclud ed from report: Pending order T1 Drug Screen S TANDARD-Urine w/o Confirmation Pending Order exclud ed from report: Pending order Menactra Intramu scular Injectable VFC Pending order IMADM THROUGH 18 YR [address] ROUTE 1ST VAC/TOXOID Pending order T1 Drug Screen S TANDARD-Urine w/o Confirmation Pending Order exclud ed from report: Pending order Urine Dip Auto 8 1003 Pending order Medication Recon ciliation Pending order Gardasil Intramu scular Suspension VFC Pending order IMADM THROUGH 18 YR ANY ROUTE 1ST VAC/TOXOID Pending order Medication Recon ciliation Pending order FluMist Quadriva lent Nasal Suspension VFC Pending order Gardasil Intramu scular Suspension VFC Pending order IMADM THROUGH 18 YR ANY ROUTE 1ST VAC/TOXOID Pending order Medication Recon ciliation Pending order Vision Screening ; quantitative; bilateral 40480 Pending order Menactra Intramu scular Injectable VFC Pending order Adacel Intramusc ular Suspension 5-2-15.5 VFC Pending order FluMist Quadriva lent Nasal Suspension VFC Pending order Havrix Intramusc ular Suspension 720 EL U/0.5ML Pending order Gardasil Intramu scular Suspension Pending order Menactra Intramu scular Injectable VFC Pending order Vision Screening ; quantitative; bilateral 80796 Pending order Immunization(s) Ordered Pending order VFC Flu 3 yrs an d older Pending order IMADM THROUGH 18 YR ANY ROUTE 1ST VAC/TOXOID Pending order Immunization(s) Ordered Pending order VFC Flu 3 yrs an d older Pending order IMADM THROUGH 18 YR ANY ROUTE 1ST VAC/TOXOID Pending order Immunization(s) Ordered Pending order VFC Flu 3 yrs an d older Pending order VFC Flu 3 yrs an d older Pending order IMADM THROUGH 18 YR ANY ROUTE 1ST VAC/TOXOID Patient education [email or web address] and [email or web address]=&[email or web address] [email or web address] [email or web address]= [id number] Patient education Medications Patient education Medications Patient education Medications Patient education Medications Patient education Medications Patient education Medications Patient education Medications Procedures Code Procedure Name Date Entry Date [facility] [id number] T1 Drug Screen STANDARD-Urine w/o Confirm ation CPT-3074F Most recent systolic blood pressure <130 mm Hg CPT-3079F Most recent diastoli c blood pressure 80-89 mm Hg SCT-[id number] Medication Reconciliation CPT-1159F Medication list docu mented in medical record [facility] 54082 T2 G.C. Chlamydia Throat Culture CPT-3077F Most recent systolic blood pressure >=140 mm Hg CPT-3079F Most recent diastolic blood pressure 80-8 9 mm Hg CPT-1159F Medication list documented in medical rec ord [facility] F8318 T1 Drug Screen STANDARD-Urine w/o Confirm ation [id number] Medication Reconciliation CPT-05283OPB Menactra Intramuscular Injectable VFC 202 CPT-54649 IMADM THROUGH 18YR ANY ROUTE 1ST VAC/TOXO ID [facility] F8318 T1 Drug Screen [place]-Urine w/o Confirmation CPT-3075F Most recent systolic blood pressure 130-139 mm Hg CPT-3079F Most recent diastoli c blood pressure 80-89 mm Hg SCT-[id number] Medication Reconciliation [facility] 395 T1 Urine Culture CPT-3075F Most recent systolic blood pressure 130-139 mm Hg CPT-3079F Most recent diastoli c blood pressure 80-89 mm Hg CPT-64559 Urine Dip Auto 73757 SCT-[id number] Medication Reconciliation [id number] Never smoker SCT-[id number] Medication Reconciliation CPT-3074F Most recent systolic blood pressure <130 mm Hg CPT-3078F Most recent diastoli c blood pressure <80 mm Hg SCT-[id number] Medication Reconciliation CPT-3075F Most recent systolic blood pressure 130-139 mm Hg CPT-3078F Most recent diastoli c blood pressure <80 mm Hg SCT-[id number] Medication Reconciliation CPT-3074F Most recent systolic blood pressure <130 mm Hg CPT-3078F Most recent diastoli c blood pressure <80 mm Hg SCT-[id number] Never smoker SCT-[id number] Medication Reconciliation CPT-3074F Most recent systolic blood pressure <130 mm Hg CPT-3078F Most recent diastoli c blood pressure <80 mm Hg CPT-3074F Most recent systolic blood pressure <130 mm Hg CPT-3078F Most recent diastoli c blood pressure <80 mm Hg CPT-3074F Most recent systolic blood pressure <130 mm Hg CPT-3078F Most recent diastoli c blood pressure <80 mm Hg SCT-[id number] Medication Reconciliation SCT-[id number] Medication Reconciliation CPT-3074F Most recent systolic blood pressure <130 mm Hg CPT-3078F Most recent diastoli c blood pressure <80 mm Hg PLAS [facility] SCT-[id number] Medication Reconciliation SCT-[id number] Medication Reconciliation SCT-[id number] Medication Reconciliation CPT-25098PNL Gardasil Intramuscular Suspension VFC 201 01/01/20 CPT-68336 IMADM THROUGH 18YR ANY ROUTE 1ST VAC/TOXO ID CPT-25426TFL FluMist Quadrivalent Nasal Suspension VFC CPT-95601RKV Gardasil Intramuscular Suspension VFC 201 12/08/21 CPT-39323 IMADM THROUGH 18YR ANY ROUTE 1ST VAC/TOXO ID SCT-[id number] Medication Reconciliation CPT-75326XWK Menactra Intramuscular Injectable VFC 201 11/30/06 CPT-13404LAR Adacel Intramuscular Suspension 5-2-15.5 VFC CPT-68615GQN FluMist Quadrivalent Nasal Suspension VFC CPT-18888 Havrix Intramuscular Suspension 720 EL U/0.5ML CPT-91543 Gardasil Intramuscular Suspension CPT-26616WRL Menactra Intramuscular Injectable VFC 201 11/06/13 IMMORDER Immunization(s) Ordered 2012 CPT-86059EZH VFC Flu 3 yrs and older 2012 CPT-85920 IMADM THROUGH 18YR ANY ROUTE 1ST VAC/TOXO ID IMMORDER Immunization(s) Ordered 2011 CPT-52205JPH VFC Flu 3 yrs and older 2011 CPT-46938 IMADM THROUGH 18YR ANY ROUTE 1ST VAC/TOXO ID CPT-G8447 Encounter documented using a certified EH R IMMORDER Immunization(s) Ordered 2010 CPT-33717TGW VFC Flu 3 yrs and older 2010 CPT-60015GWD VFC Flu 3 yrs and older 2010 CPT-59101 IMADM THROUGH 18YR ANY ROUTE 1ST VAC/TOXO ID CPT-G8447 Encounter documented using a certified EH R CPT-G8447 Encounter documented using a certified EH R Vital Signs Date Name Value Unit Description BMI (Body Mass Index) 24.75 kg/m2 Bod y Mass Index (Ratio) Body Temperature 98.1 [degF] temperat ure E&M Body Temperature 36.72 Rosa temperat ure in centigrade E&M BP Diastolic 81 mm[Hg] blood pressu re, diastolic BP Systolic 119 mm[Hg] blood pressur e, systolic BSA (Body Surface Area) 2.17 b pascale surface area Heart Rate 88 /min pulse rate Height 74.75 [in_us] height E&M Height 189.87 cm height in cent imeters E&M Weight Measured 89.09 kg weight in kilograms E&M Weight Measured 196 [lb_av] weight E& M Weight Measured 196 [lb_av] weight E& M Respiratory Rate 18 /min respirat ory rate E&M Immunizations Vaccine Administration Date Standard Description CVX Co de Dose mmr #1 03 Unknown ipv #1 10 Unknown ipv #2 10 Unknown ipv #3 10 Unknown ipv #4 10 Unknown mmr #2 03 Unknown pneuped#4 109 Unknown pneuped#2 109 Unknown pneuped#3 109 Unknown hib #3 17 Unknown dtap #2 20 Unknown dtap #4 20 Unknown dtap #5 20 Unknown hib #1 17 Unknown dtap #3 20 Unknown varicella#2 21 Unknown hib #2 17 Unknown dtap #1 20 Unknown varicella#1 21 Unknown pneumovax 133 Unknown flu vax #3 141 0.5 ml hepavax #1 85 Unknown flu vax #2 88 Unknown hepavax #1 85 Unknown hepbvax#3 45 Unknown hepbvax#1 45 Unknown hepbvax#2 45 Unknown mmr ed#2 94 Unknown flu vax#1 88 Unknown vfc flumist quadrivalent nasal suspension vfc flumist quadrivalent nasal suspension 149 0.2 mL havrix intramuscular suspension 720 el u/0.5ml havrix intramuscular suspension 720 el u/0.5ml 83 0.5 mL gardasil intramuscular suspension gardasil intramuscular suspension 62 0.5 mL vfc menactra intramuscular injectable vfc menactra intramuscular injectable 114 0.5 mL vfc menactra intramuscular injectable vfc menactra intramuscular injectable 114 0.5 mL vfc adacel intramuscular suspension 5-2-15.5 vfc adacel intramuscular suspension 5-2-15.5 115 0.5 mL VFC Gardasil Intramuscular Suspension Human Papillomavirus 62 0. 5 mL VFC FluMist Quadrivalent Nasal Suspension Influenza 149 0.2 mL VFC Gardasil Intramuscular Suspension [facility] Gardasil Intramuscular Suspension 62 0.5 mL [facility] Menactra Intramuscular Injectable [facility] Menactra Intramuscular Injectable 114 0.5 mL Advance Directives No information available.
== END 2025-04-09 23:15 | disposition home or self-care (01) ==
LOC: ER 23:14
PROVIDERS: Emergency Provider Emergency Medicine
DX: R11.2 Nausea with vomiting, unspecified (principal); R19.7 Diarrhea, unspecified; F17.200 Nicotine dependence, unspecified, uncomplicated
CPT/HCPCS: 99282; 99283; Q0162